=== PATIENT | female | born 1995 | race Caucasian/White ===

== ENCOUNTER → 2017-01-23 | Outpatient (CLI) | payer OTHER ==
[2017-01-23 15:38] LABS: THYROID STIMULATING HORMONE 1.25 uIU/ml (0.34-5.60)
[2017-01-23 15:42] LABS: FREE T3 3.3 pg/mL (2.5-3.9)
[2017-01-23 15:44] LABS: FREE THYROXIN (T4) 0.68 ng/dL (0.58-1.64)
== END | disposition home or self-care (01) ==
LOC: CLAB 14:13
PROVIDERS: Internal Medicine Cardiovascular Disease
DX: R00.2 Palpitations (principal)
CPT/HCPCS: 36415; 84439; 84443; 84481